=== PATIENT | female | born 1970 | race Hispanic/Latino ===

== ENCOUNTER 2019-11-15 20:40 | Inpatient (IN) | payer OTHER ==
[2019-11-15 21:27] LABS: Absolute Lymphocytes (CBC) 1.7 K/uL (0.7-4.9); Basophils % 0.6 % (0-1.3); Hematocrit 40.7 % (36.0-45.0); MPV 8.6 fL (7.6-11.3); RBC Red Blood Cell Count 4.72 M/uL (3.86-4.86)
--- NOTE | 2019-11-15 21:40 | ER ---
Nurse's Notes [facility] Name: Elisa Wheatley Age: 49 yrs Sex: Female : 1970 Arrival Date: 11/15/2019 Time: 20:42 Bed 19 Private MD: Diagnosis: Encounter for screening for lower gastrointestinal disorder;Gastrointestinal hemorrhage, unspecified Presentation: 11/14 20:53 Chief complaint: Patient states: Reports she had a colonoscopy on the [address] lauren Masters and started bleeding today. Reports the blood is hillary and has had 6 bloody stools within the past two hours. Coronavirus screen: Proceed with normal triage. Ebola Screen: No symptoms or risks identified at this time. Initial Sepsis Screen: Does the patient meet any 2 criteria? No. Patient's initial sepsis screen is negative. Does the patient have a suspected source of infection? No. Patient's initial sepsis screen is negative. Risk Assessment: Do you want to hurt yourself or someone else? Patient reports no desire to harm self or others. Onset of symptoms. 20:53 Method Of Arrival: Ambulatory rv 20:53 Acuity: NEELAM 3 rv Triage Assessment: 21:08 General: Appears in no apparent distress. Behavior is appropriate for age. Pain: Denies ea pain. Neuro: Level of Consciousness is awake, alert, obeys commands, Oriented to person, place, time, situation. Cardiovascular: Patient's skin is warm and dry. Respiratory: Airway is patent Respiratory effort is even, unlabored, Respiratory pattern is regular, symmetrical. GI: Reports bloody stool. Derm: Skin is pink, warm \T\ dry. Historical: - Allergies: 20:56 No Known Allergies; rv - Home Meds: 20:56 metoprolol tartrate 100 mg Oral tab [Active]; levothyroxine oral [Active]; rv - PMHx: 20:56 Hypertension; Hypothyroidism; rv - PSHx: 20:56 None; rv - Immunization history:: Adult Immunizations up to date. - Social history:: Smoking status: Patient denies any tobacco usage or history of. Screenin:55 Abuse screen: Denies threats or abuse. Nutritional screening: No deficits noted. rv Tuberculosis screening: No symptoms or risk factors identified. Fall Risk None identified. Assessment: 21:12 Reassessment: see triage assessment. ea 21:59 Reassessment: Patient and/or family updated on plan of care and expected duration. Pain ea level reassessed. Patient is alert, oriented x 3, equal unlabored respirations, skin warm/dry/pink. 22:19 Reassessment: Patient and/or family updated on plan of care and expected duration. Pain ea level reassessed. Patient is alert, oriented x 3, equal unlabored respirations, skin warm/dry/pink. 23:04 Reassessment: Report called to Ariella BENJAMIN. ea 23:22 Reassessment: Patient and/or family updated on plan of care and expected duration. Pain ea level reassessed. Patient is alert, oriented x 3, equal unlabored respirations, skin warm/dry/pink. Pt admitted to second floor, pt left ED via wheelchair per tech. Pt tolerating well. Vital Signs: 20:53 BP 175 / 95; Pulse 106; Resp 18; Temp 98; Pulse Ox 98% ; Weight 97.98 kg; Height 5 ft. rv 3 in. (160.02 cm); Pain 0/10; 22:21 BP 144 / 79; Pulse 94; Resp 18; Pulse Ox 97% on R/A; ea 23:15 BP 131 / 80; Pulse 97; Resp 18; Pulse Ox 97% on R/A; ea 20:53 Body Mass Index 38.26 (97.98 kg, 160.02 cm) rv ED Course: 20:42 Patient arrived in ED. ds1 20:55 Triage completed. rv 21:07 Guerda Gaona, SOURAV is Primary Nurse. ea 21:09 Sergio Cassidy MD is Attending Physician. tw4 21:09 Patient has correct armband on for positive identification. Placed in gown. Bed in low ea position. Call light in reach. Side rails up X 1. 21:10 Arm band placed on right wrist. Patient placed in an exam room, on a stretcher, on ea pulse oximetry. 21:10 Inserted saline lock: 18 gauge in right antecubital area, using aseptic technique. rv Blood collected. 21:38 Hugo Prieto MD is Hospitalizing Provider. tw4 22:19 No provider procedures requiring assistance completed. Patient admitted, IV remains in ea place. Administered Medications: 21:42 Drug: Flagyl 500 mg Volume: 100 ml; Route: IVPB; Rate: 200 ml/hr; Infused Over: 30 ea mins; Site: right antecubital; 22:57 Follow up: Response: No adverse reaction; IV Status: Completed infusion ea 21:43 Drug: Cipro 500 mg Route: PO; ea 22:10 Follow up: Response: No adverse reaction ea Outcome: 21:39 Decision to Hospitalize by Provider. tw4 22:20 Instructed on the need for admit, Demonstrated understanding of instructions. ea 23:04 Admitted to Med/surg accompanied by tech, room 205, Report called to Ariella BENJAMIN ea 23:04 Condition: stable 23:23 Patient left the ED. ea Signatures: Tammie Thao ds1 Guerda Gaona RN RN ea Sergio Cassidy MD MD tw4 Woodrow Fletcher RN RN rv Corrections: (The following items were deleted from the chart) :57 20:53 Chief complaint: Patient states: Reports she had a colonoscopy on the 05 of November rv and started bleeding today. Reports the blood is hillary and has had 6 bloody stools within the past two hours rv
--- NOTE | 2019-11-15 21:41 | EDPHYS ---
Physician Documentation [facility] Name: Elisa Wheatley Age: 49 yrs Sex: Female : 1970 Arrival Date: 11/15/2019 Time: 20:42 Bed 19 Private MD: ED Physician Sergio Cassidy HPI: 11/14 21:35 This 49 yrs old Female presents to ER via Ambulatory with complaints of Rectal tw4 Bleeding. 21:35 The patient presents to the emergency department with rectal bleeding, a moderate tw4 amount, 7 times since symptom onset. Onset: The symptoms/episode began/occurred today. Abdominal pain: none is appreciated. Modifying factors: The symptoms are alleviated by nothing, the symptoms are aggravated by food. Associated signs and symptoms: The patient has no apparent associated signs or symptoms. Severity of symptoms: At their worst the symptoms were moderate in the emergency department the symptoms are unchanged. The patient has experienced a previous episode. The patient has been recently seen by a physician: Dr. Mayte charles marketing and communications officer, 1 week(s) ago, pt had a colonoscopy which revealed polyps. Historical: - Allergies: 20:56 No Known Allergies; rv - Home Meds: 20:56 metoprolol tartrate 100 mg Oral tab [Active]; levothyroxine oral [Active]; rv - PMHx: 20:56 Hypertension; Hypothyroidism; rv - PSHx: 20:56 None; rv - Immunization history:: Adult Immunizations up to date. - Social history:: Smoking status: Patient denies any tobacco usage or history of. ROS: 21:35 Constitutional: Negative for fever, chills, and weight loss, Eyes: Negative for injury, tw4 pain, redness, and discharge, Cardiovascular: Negative for chest pain, palpitations, and edema, Respiratory: Negative for shortness of breath, cough, wheezing, and pleuritic chest pain, MS/Extremity: Negative for injury and deformity, Skin: Negative for injury, rash, and discoloration. 21:35 Abdomen/GI: Positive for rectal bleeding, Negative for abdominal pain, nausea and vomiting, nausea, vomiting, and diarrhea, nausea, vomiting, diarrhea, constipation, abdominal cramps, abdominal distension, anorexia, dysphagia. Exam: 21:35 Constitutional: This is a well developed, well nourished patient who is awake, alert, tw4 and in no acute distress. Head/Face: Normocephalic, atraumatic. Chest/axilla: Normal chest wall appearance and motion. Nontender with no deformity. No lesions are appreciated. Cardiovascular: Regular rate and rhythm with a normal S1 and S2. No gallops, murmurs, or rubs. Normal PMI, no JVD. No pulse deficits. Respiratory: Lungs have equal breath sounds bilaterally, clear to auscultation and percussion. No rales, rhonchi or wheezes noted. No increased work of breathing, no retractions or nasal flaring. Abdomen/GI: Soft, non-tender, with normal bowel sounds. No distension or tympany. No guarding or rebound. No evidence of tenderness throughout. Skin: Warm, dry with normal turgor. Normal color with no rashes, no lesions, and no evidence of cellulitis. MS/ Extremity: Pulses equal, no cyanosis. Neurovascular intact. Full, normal range of motion. Neuro: Awake and alert, GCS 15, oriented to person, place, time, and situation. Cranial nerves II-XII grossly intact. Motor strength 5/5 in all extremities. Sensory grossly intact. Cerebellar exam normal. Normal gait. 21:35 Abdomen/GI: Rectal exam: Stool: grossly bloody. Vital Signs: 20:53 BP 175 / 95; Pulse 106; Resp 18; Temp 98; Pulse Ox 98% ; Weight 97.98 kg; Height 5 ft. rv 3 in. (160.02 cm); Pain 0/10; 22:21 BP 144 / 79; Pulse 94; Resp 18; Pulse Ox 97% on R/A; ea 23:15 BP 131 / 80; Pulse 97; Resp 18; Pulse Ox 97% on R/A; ea 20:53 Body Mass Index 38.26 (97.98 kg, 160.02 cm) rv MDM: 21:11 Patient medically screened. tw4 21:39 Differential diagnosis: gastritis, diverticulitis. Data reviewed: vital signs, nurses tw4 notes. Counseling: I had a detailed discussion with the patient and/or guardian regarding: the historical points, exam findings, and any diagnostic results supporting the discharge/admit diagnosis. Special discussion: I discussed with the patient/guardian in detail that at this point there is no indication for admission to the hospital. It is understood, however, that if the symptoms persist or worsen the patient needs to return immediately for re-evaluation. 11/14 21:12 Order name: Basic Metabolic Panel; Complete Time: 21:48 [facility] 11/14 21:48 Interpretation: Normal except: CL 110; GFR 79; GLUC 135. [facility] 11/14 21:12 Order name: CBC with Diff; Complete Time: 21:48 [facility] 11/14 21:48 Interpretation: Normal except: PRISCILA% 74.7. [facility] 11/14 21:12 Order name: LFT's; Complete Time: 21:48 [facility] 11/14 21:48 Interpretation: Normal except: ALK 131; BILIT 1.1; GLOB 3.7; A/G 1.0. [facility] 11/14 21:12 Order name: Magnesium; Complete Time: 21:48 [facility] 11/14 21:49 Interpretation: Within normal limits: MG 2.1. [facility] 11/14 21:12 Order name: PT-INR; Complete Time: 21:48 [facility] 11/14 21:49 Interpretation: Within normal limits: PT 11.8. [facility] 11/14 21:20 Order name: Type And Screen ea 11/14 22:12 Order name: ABO/RH no charge EDMN 11/14 22:21 Order name: Basic Metabolic Panel EDMN 11/14 22:21 Order name: Basic Metabolic Panel EDMN 11/14 22:21 Order name: CBC with Automated Diff EDMN 11/14 22:21 Order name: CBC with Automated Diff EDMN 11/14 22:21 Order name: Hematocrit EDMN 11/14 22:22 Order name: Hematocrit EDMN 11/14 22:22 Order name: Hematocrit EDMN 11/14 22:21 Order name: CONS Pharmacy Consult EDMN 11/14 22:21 Order name: NPO EDMN 11/14 22:21 Order name: EKG Electrocardiogram EDMS 11/14 22:21 Order name: EKG Electrocardiogram EDMS 11/14 22:21 Order name: EKG Electrocardiogram EDMS 11/14 22:21 Order name: EKG Electrocardiogram EDMS 11/14 22:21 Order name: EKG Electrocardiogram EDMS 11/14 22:21 Order name: EKG Electrocardiogram EDMS 11/14 22:21 Order name: EKG Electrocardiogram EDMS 11/14 22:22 Order name: Hemoglobin EDMS 11/14 22:22 Order name: Hemoglobin EDMN 11/14 22:22 Order name: Hemoglobin EDMN 11/14 22:22 Order name: Protime (+INR) EDMN 11/14 22:22 Order name: Protime (+INR) EDMN 11/14 21:12 Order name: Cardiac monitoring; Complete Time: 21:58 tw4 11/14 21:12 Order name: IV Saline Lock; Complete Time: 21:13 tw4 11/14 21:12 Order name: Labs collected and sent; Complete Time: 21:13 tw4 11/14 21:12 Order name: O2 Per Protocol; Complete Time: 21:13 tw4 11/14 21:12 Order name: O2 Sat Monitoring; Complete Time: 21:13 tw4 11/14 22:21 Order name: EKG Electrocardiogram EDMN 11/14 22:21 Order name: EKG Electrocardiogram EDMN 11/14 22:21 Order name: EKG Electrocardiogram EDMN 11/14 22:21 Order name: EKG Electrocardiogram EDMN Administered Medications: 21:42 Drug: Flagyl 500 mg Volume: 100 ml; Route: IVPB; Rate: 200 ml/hr; Infused Over: 30 ea mins; Site: right antecubital; 22:57 Follow up: Response: No adverse reaction; IV Status: Completed infusion ea 21:43 Drug: Cipro 500 mg Route: PO; ea 22:10 Follow up: Response: No adverse reaction ea Disposition: 11/15/19 21:39 Hospitalization ordered by Hugo Prieto for Inpatient Admission. Preliminary diagnosis are Encounter for screening for lower gastrointestinal disorder, Gastrointestinal hemorrhage, unspecified. - Bed requested for Telemetry/MedSurg (Inpatient). - Status is Inpatient Admission. ea - Condition is Stable. - Problem is new. - Symptoms are unchanged. Signatures: Dispatcher [employer] Gina Woodward RN RN cg Guerda Gaona RN RN ea Wadley, Terrence, MD MD tw4 Woodrow Fletcher RN RN rv Corrections: (The following items were deleted from the chart) 22:33 21:39 Hospitalization Ordered by Hugo Prieto MD for Inpatient Admission. Preliminary cg diagnosis is Encounter for screening for lower gastrointestinal disorder; Gastrointestinal hemorrhage, unspecified. Bed requested for Telemetry/MedSurg (Inpatient). Status is Inpatient Admission. Condition is Stable. Problem is new. Symptoms are unchanged. tw4 23:23 22:33 11/15/2019 21:39 Hospitalization Ordered by Hugo Prieto MD for Inpatient ea Admission. Preliminary diagnosis is Encounter for screening for lower gastrointestinal disorder; Gastrointestinal hemorrhage, unspecified. Bed requested for Telemetry/MedSurg (Inpatient). Status is Inpatient Admission. Condition is Stable. Problem is new. Symptoms are unchanged.
[2019-11-15] MEDS ORDERED: METRONIDAZOLE 500mg IVPB 500 MG/100 ML BAG IV ONE (21:43)
[2019-11-15] MEDS ORDERED: CIPROFLOXACIN HCL 500 MG TAB ONE (21:44)
[2019-11-15 21:45] LABS: Albumin 3.8 g/dL (3.4-5.0); Bilirubin Direct 0.2 mg/dL (0-0.2); Bilirubin Total 1.1 mg/dL (0.2-1.0); Magnesium 2.1 mg/dL (1.8-2.4); Potassium 3.5 mmol/L (3.5-5.1); Protein, Total 7.5 g/dL (6.4-8.2)
[2019-11-15] MEDS ORDERED: ACETAMINOPHEN 500 MG TAB PO PRN (22:16)
[2019-11-15] MEDS ORDERED: ONDANSETRON 4 MG/2 ML VIAL IV PRN (22:16)
[2019-11-15] MEDS ORDERED: MORPHINE 2 MG/ML SYR IV PRN (22:16)
--- OUTSIDE RECORDS SUMMARY | 2019-11-15 22:59 | XMS REPORT ---
:1970 Author Organization [facility] t Address [address] [place] [address] Care Team Providers Name Role Phone Markie Coates Attending Clinician Donaldo SANTIAGO Attending Clinician Donaldo SANTIAGO Admitting Clinician Payers Payer Name Policy Type Policy Number Effective Date Expiration Date S ource Problems Condition Condition Condition Status Onset Resolution Last Treating Co mments Source Name Details Category Date Date Treatment Clinician Date Obesity Obesity Problem Active [facility] (BMI (BMI [facility] - 30-39.9) 30-39.9) [facility] Constipati Constipati Problem Active [facility] on, on, [facility] - unspecifie unspecifie Me moria d d l constipati constipati Ou tpati on type on type ent Clinics Encounter Encounter Problem Active [facility] for for [facility] - general general Memoria adult adult l medical medical Outpati examinatio examinatio en t n with n with Clinics abnormal abnormal findings findings Essential Essential Problem Active [facility] hypertensi hypertensi Kacie kes - on on Memoria l [facility] ent Clinics Hyperchole Hyperchole Problem Active [facility] sterolemia sterolemia [facility] Hyperglyce Hyperglyce Problem Active [facility] aaron aaron [facility] - Memoria l [facility]ics Rectal Rectal Problem Active [facility] bleeding bleeding [facility] Clinics Hypothyroi Hypothyroi Problem Active [facility] dism, dism, [facility] - unspecifie unspecifie Me moria d type d type l [facility] ent Clinics Diverticul Diverticul Problem Active [facility] osis osis [facility] l [facility] ent Clinics Allergies, Adverse Reactions, Alerts Allergy Allergy Status Severity Reaction(s) Onset Inactive Treating Comm ents Source Name Type Date Date Clinician No Known DA Active [facility] Allergie 8-15 [facility] s 00:00: d 00 [facility] Medications Ordered Filled Start Stop Current Ordering Indication Dosage Frequency Signature Comments Components Source Medication Medication Date Date Medication? Clinician (SIG) Name Name Levothyroxi Levothyroxi Yes Yuliya [address] [facility] ne Sodium ne Sodium 1-17 Shanks in the Kacie kes - 00:00: morning on Memoria 00 an empty l stomach [facility] Lipitor Lipitor Yes Yuliya [address] 1-17 Shanks [facility] - 00:00: Memoria 00 l [facility] ent Clinics Metoprolol Metoprolol Yes Yuliya [address] [facility] Tartrate Tartrate Shanks with food L es - [facility] ent [facility] Metoprolol Metoprolol Yes Yuliya as [facility] Succinate Succinate Shanks directed [facility] - [facility] ent Clinics Immunizations Ordered Filled Immunization Date Status Comments Sourc e Immunization Name Name Flucelvax - single Flucelvax - single 2019-06-[address] [facility] - dose syringe dose syringe 00:00:00 [facility] Procedures This patient has no known procedures. Encounters Start End Encounter Admission Attending Care Care Encounter Source Date/Time Date/Time Type Type Clinicians Facility Department ID 2019-08-22 2019-08-24 Emergency Mitzi Conway [id number] 10:38:04 19:06:00 Winnie Fulton [id number] [facility] [id number] 2019-08-06 2019-08-06 Outpatient Marie Salazart [id number] [facility] 09:56:00 09:56:00 t [facility] ent [facility] 2019-07-17 2019-07-17 Outpatient Brazenrique [place] [id number] [facility] 09:00:00 09:00:00 t [facility] 2019-06-23 2019-06-23 Outpatient Efeenrique [place] [id number] [facility] 10:45:00 10:45:00 t Urgent [facility] 2019-06-16 2019-06-16 Outpatient Marie Salazart [id number] 10:00:00 10:00:00 t [facility] Results Test Description Test Time Test Comments Results Result Comments Source SURG 2019-02-19 16:35:00 --------RUN DATE: 02/19/19 [facility] - LAB *LIVE* PAGE 1 RUN TIME: 1635 Specimen Inquiry RUN USER: INTERFACE --------PATIENT: PRISCILLA ZAVALA #: [id number] LOC: ADRY U #: [id number] AGE/SX: 48/F ROOM: RE02/17/19[facility] DR: Ivelisse Ahsley : 74 BED: DIS: STATUS: [facility] TLOC: -------- SPEC #: [id number] RECD: 02/17/19 STATUS: GAVIOTAThor REPreston #: [id number] BRIT: 02/17/19-[address]: Ivelisse Ashley MD ENTERED: 02/17/19 SP TYPE: SURG OTHR DR: No Primary or Family PhysicianORDERED: SURG PATH LVL 6 COPIES TO: No Primary or Family Physician Ivelisse Ashley MD [address] [place] [address] HISTOLOGY: TISSUE ID BLK PCS RENA LEV PROCEDURE DISPOSITION ____ ___ ___ ___ UTERUS, NOS A 2 PROCEDURES: SURG PATH LVL 6 (02/17/19) TISSUES: A. UTERUS, NOS - UTERUS LEFT TUBE ATTACHED CLINICAL HISTORY EXCESSIVE/FREQUENT MENSES -N92.1; UTERINE FIBROID -D25.9 CPT CODES CPT CODE(S): 42033 , , , , , , FINAL DIAGNOSIS Uterus and left fallopian tube, hysterectomy and left salpingectomy: NABOTHIAN CYSTS LEIOMYOMAS BILATERAL FALLOPIAN TUBE WITH PARATUBAL CYSTS GROSS DESCRIPTION Uterus, cervix and left fallopian tube. Received in formalin is a 122.4 gram hysterectomy and left salpingectomy specimen including a uterus with attached cervix (9.5 x 6.0 x 4.5 cm, 115.6 grams) and attached left fallopian tube with fimbriated end (6.5 x 1.5 x 1.0 cm). The serosal surface is aldrich-brown, generally smooth with a clamp petrona along the CONTINUED ON NEXT PAGE --------RUN DATE: 02/19/19 [facility] - LAB *LIVE* PAGE 2 RUN TIME: 1635 Specimen Inquiry RUN USER: INTERFACE --------SPEC #: [facility]:[id number] PATIENT: PRISCILLA ZAVALA #[id number] (Continued) GROSS DESCRIPTION (Continued) fundus. The cervix measures 4.0 x 3.5 x 3.5 (depth), covered by smooth glistening white mucosa with a focal brown, slightly granular area surrounding a linear os, 1.1 cm. The cervix contains several cysts, the largest measures 0.9 cm, filled with translucent colloid-like material. The endometrial cavity measures 2.5 cm from cornu to cornu x 3.5 cm in length with a slightly hemorrhagic endometrium, 0.3 cm. The myometrium is maximally 2.5 cm in thickness, and contains focal areas with slight coarse trabeculations. There are three (3) intramural nodules. ranging from 0.5 to 2.0 cm in greatest dimensions. The cut surface of the nodules is aldrich, firm and solid with the whorled appearance and without hemorrhage or necrosis. The left fallopian tube is slightly tortuous, has a patent lumen and attached paratubal cysts, 0.2 to 1.0 cm in greatest dimension, filled with translucent non-viscous fluid. Transit Bus Driver sections submitted. /nr Section code: A1 Anterior cervix A2 Posterior cervix A3-A4 Anterior endometrium/myometriu m A5-A6 Posterior endometrium/myometriu m A7-A8 Intramural nodules A9 Serosa (posterior cul-de-sac) A10-A11 Left fallopian tube and paratubal cysts Grossing performed at [facility], [address] [place] [address], [address], [place] [address]. Livestock Counter: Angus Sargent M.D. MICROSCOPIC DESCRIPTION Uterus, cervix and left fallopian tube. Sections demonstrate squamous ectocervix and glandular endocervix. Nabothian cysts are identified. Sections of the endometrium demonstratesecretory phase endometrium. The myometrium demonstrate spindle cell nodules with no evidence of increased mitotic activity or malignant features. The serosal surface is unremarkable. Sections of the fallopian tube demonstrate complete cross-sections of unremarkable fallopian tube and fimbriated end. Paratubal cysts are identified. Signed SIGNATURE ON FILE Ever Rodas 02/19/19 3311 -------- END OF REPORT URINALYSIS DIPSTICK 2019-02-13 17:22:00 Test Item Value Reference Range Interpretation Comme nts UA GLUCOSE DIPSTICK (test code = DGLUU) NEGATIVE mg/dL NEG UA BILIRUBIN DIPSTICK (test code = BILU) NEGATIVE mg/dL NEG UA KETONE DIPSTICK (test code = KETU) NEGATIVE mg/dL NEG UA SPECIFIC GRAVITY (test code = SGU) 1.015 SG 1.005-1.030 UA BLOOD DIPSTICK (test code = RAYMOND) NEGATIVE mg/DL NEG UA PH DIPSTICK (test code = TAWNY) 6.0 pH UNITS 5.0-7.0 UA PROTEIN DIPSTICK (test code = PROU) NEGATIVE mg/dL NEG UA UROBILINIOGEN DIPSTICK (test code = URO) 0.2 mg/dL <2.0 UA NITRITE DIPSTICK (test code = CAITY) NEGATIVE SCREEN NEG UA LEUKOCYTE ESTERASE DIPSTICK (test code = LEUU) NEGATIVE Leuk/mcL NEGATIVE Urine Specimen Type: Clean CatchUR HCG [id number] 09:30:00 Test Item Value Reference Range Interpretation Comments UR HCG QUAL (test code = HCGQLU) NEGATIVE NEGATIVE CBC W/AUTO [id number] 09:26:00 Test Item Value Reference Range Interpretation Comments WHITE BLOOD CELL (test code = 6.9 K/mm3 3.5-11.0 N WBC) RED BLOOD CELL (test code = RBC) 4.48 M/mm3 4.70-6.10 L HEMOGLOBIN (test code = HGB) 12.0 G/DL 10.4-14.9 N HEMATOCRIT (test code = HCT) 36.5 % 31.5-44.1 N MEAN CELL VOLUME (test code = 81.5 Fl 84.5-98.6 L MCV) MEAN CELL HGB (test code = MCH) 26.8 pg 27.0-34.2 L MEAN CELL HGB CONCETRATION (test 32.9 G/DL 31.5-34.0 N code = MCHC) RED CELL DISTRIBUTION WIDTH (test 18.8 SD 11.5-14.5 H code = RDW) PLATELET COUNT (test code = PLT) 184.0 K/mm3 150-450 N MEAN PLATELET VOLUME (test code = 10.00 fL 7.0-10.5 N MPV) NEUTROPHIL % (test code = NT%) 70.3 % 40-76 N LYMPHOCYTE % (test code = LY%) 20.7 % 20.5-51.1 N MONOCYTE % (test code = MO%) 5.5 % 1.7-9.3 N EOSINOPHIL % (test code = EO%) 3.4 % 0.0-6.0 N BASOPHIL % (test code = BA%) 0.1 % 0.0-2.0 N NEUTROPHIL # (test code = NT#) 4.82 K/mm3 1.8-7.6 N LYMPHOCYTE # (test code = LY#) 1.4 K/mm3 0.6-3.2 N MONOCYTE # (test code = MO#) 0.4 K/mm3 0.3-1.1 N EOSINOPHIL # (test code = EO#) 0.2 K/mm3 0.0-0.4 N BASOPHIL # (test code = BA#) 0.0 K/mm3 0.0-0.1 N MANUAL DIFF REQUIRED (test code = NO DIFF/SCN CRITERIA MDIFF)
[2019-11-15] MEDS ORDERED: NA CHLORIDE 0.9% 250 ML IV SCH (23:00)
[2019-11-15] MEDS: NA CHLORIDE 0.9% 1,000 ML IV SCH (23:00)
--- OUTSIDE RECORDS SUMMARY | 2019-11-15 23:00 | XMS REPORT ---
:1970 Author Organization [employer] Care Team Providers Name Role Phone Yuliya Shanks Provider Role Unavailable Allergies No Known Allergies Problems Problem Type Condition Code Onset Dates Condition Statu s Problem Obesity (BMI 30-39.9) E66.9 Active Problem Encounter for general adult medical Z00.01 Active examination with abnormal findings Problem Essential hypertension I10 Activ e Problem Constipation, unspecified K59.00 Ac tive constipation type Medications No Known Medications Results No Known Results Summary Purpose [employer] Submission
--- OUTSIDE RECORDS SUMMARY | 2019-11-15 23:00 | XMS REPORT ---
:1970 Author Organization [employer]Works Care Team Providers Name Role Phone Yuliya Shanks Provider Role Unavailable Allergies No Known Allergies Problems Problem Type Condition Code Onset Dates Condition Statu s Problem Essential hypertension I10 Activ e Problem Obesity (BMI 30-39.9) E66.9 Active Problem Hyperglycemia R73.9 Active Problem Hypothyroidism, unspecified type E03.9 Active Problem Diverticulosis K57.90 Active Problem Encounter for general adult medical Z00.01 Active examination with abnormal findings Problem Constipation, unspecified K59.00 Ac tive constipation type Problem Rectal bleeding K62.5 Active Problem Hypercholesterolemia E78.00 Active Medications No Known Medications Results No Known Results Summary Purpose eClinicalWorks Submission
--- OUTSIDE RECORDS SUMMARY | 2019-11-15 23:00 | XMS REPORT ---
:1970 Author Organization [employer] Care Team Providers Name Role Phone Yuliya Shanks Provider Role Unavailable Allergies, Adverse Reactions, Alerts Substance Reaction Event Type N.K.D.A. Info Not Available Non Drug Allergy Problems Problem Type Condition Code Onset Dates Condition Statu s Assessment Obesity (BMI 30-39.9) E66.9 Active Assessment Constipation, unspecified K59.00 Ac tive constipation type Problem Obesity (BMI 30-39.9) E66.9 Active Problem Encounter for general adult medical Z00.01 Active examination with abnormal findings Problem Essential hypertension I10 Activ e Assessment Encounter for general adult medical Z00.01 Active examination with abnormal findings Assessment Essential hypertension I10 Activ e Problem Constipation, unspecified K59.00 Ac tive constipation type Medications Medication Code Code Instructions Start End Status Dosage System Date Date Metoprolol [facility] 55204353077 100 MG Orally Active 1 t ablet Tartrate once a day with food Metoprolol ND 93580021015 100 MG Orally Jun 16 Active as directed Succinate Once a day 2018 Results No Known Results Immunizations Vaccine Administration Date Flucelvax - single dose syringe Jun 16, 2019 Summary Purpose eClinicalWorks Submission
--- OUTSIDE RECORDS SUMMARY | 2019-11-15 23:00 | XMS REPORT ---
:1970 Author Organization [employer]Works Care Team Providers Name Role Phone Yuliya Shanks Provider Role Unavailable Allergies, Adverse Reactions, Alerts Substance Reaction Event Type N.K.D.A. Info Not Available Non Drug Allergy Problems Problem Type Condition Code Onset Dates Condition Statu s Assessment Essential hypertension I10 Activ e Problem Constipation, unspecified K59.00 Ac tive constipation type Problem Hypercholesterolemia E78.00 Active Problem Hyperglycemia R73.9 Active Problem Rectal bleeding K62.5 Active Problem Obesity (BMI 30-39.9) E66.9 Active Problem Encounter for general adult medical Z00.01 Active examination with abnormal findings Problem Hypothyroidism, unspecified type E03.9 Active Problem Essential hypertension I10 Activ e Assessment Obesity (BMI 30-39.9) E66.9 Active Assessment Rectal bleeding K62.5 Active Assessment Hypercholesterolemia E78.00 Active Assessment Hypothyroidism, unspecified type E03.9 Active Assessment Hyperglycemia R73.9 Active Medications Medication Code Code Instructions Start End Status Dosage System Date Date Levothyroxine [facility] 83205735137 25 MCG Orally Jul 17, Active 1 tablet in Sodium Once a day on 2019 the mornin g empty stomach on an emp ty stomach Lipitor ND 68750990979 10 MG Orally Jul 17, Active 1 table t Once a day at 2019 night Metoprolol [facility] 96963622036 100 MG Orally Active as directed Succinate Once a day Metoprolol [facility] 43484431914 100 MG Orally Active 1 t ablet Tartrate once a day with food Results No Known Results Summary Purpose eClinicalWorks Submission
[2019-11-16 00:11] VITALS: BMI 38.2
[2019-11-16] MEDS ORDERED: PIPERACIL/TAZO 3.375 GM VIAL IV ONE (00:38)
[2019-11-16] MEDS ORDERED: NA CHLORIDE 0.9% 100 ML ONE ×2 (00:41→05:27)
[2019-11-16 00:55] LABS: Hematocrit 36.1 % (36.0-45.0)
[2019-11-16] MEDS: PIPER/TAZO/NS 3.375gm 3.375 GM/100 ML BAG IVPB SCH ×4 (05:42→17:11)
[2019-11-16 06:09] LABS: Absolute Lymphocytes (CBC) 1.5 K/uL (0.7-4.9); Basophils % 0.4 % (0-1.3); Hematocrit 33.7 % (36.0-45.0); Lymphocytes % 17.8 % (15.3-44.8); MPV 8.8 fL (7.6-11.3); RBC Red Blood Cell Count 3.98 M/uL (3.86-4.86)
[2019-11-16 06:11] LABS: Protime INR 1.08
[2019-11-16 06:24] LABS: BUN Blood Urea Nitrogen 10 mg/dL (7-18); Bicarbonate 22 mmol/L (21-32); Glucose Level 132 mg/dL (74-106); Potassium 3.6 mmol/L (3.5-5.1); Sodium Level 142 mmol/L (136-145)
--- NOTE | 2019-11-16 07:39 | P.HP ---
Certification for Inpatient Patient admitted to: Observation With expected LOS: <2 Midnights Patient will require the following post-hospital care: None Practitioner: I am a practitioner with admitting privileges, knowledge of patient current condition, hospital course, and medical plan of care. Services: Services provided to patient in accordance with Admission requirements found in Title 42 Section 412.3 of the Code of Federal Regulations Patient History Date of Service: 11/15/19 Reason for admission: Lower GI bleeding History of Present Illness: Patient is a 49-year-old female who has a history of hypertension and hypothyroidism. She is mainly [place]ian-speaking, and most of the information was obtained with translation through the language line along with registered nurse RN. She has been have an large amounts of blood and her stool whenever she has been going to the restroom. She has gone 6 times today and she says all of them had blood in her stool. She came into the emergency room for evaluation. In the emergency room, patient's initial hemoglobin was 13.8. Patient is hemodynamically stable at this time. Patient continues to have a large amount of stool blood in her stools in the hospital. Will continue monitoring her H&H closely. Will admit her in for observation at this time. Will get GI consultation. Patient continues to have large bloody bowel movements and she continues to drop her hemoglobin the she may need further intervention. At this time, she is not orthostatics but this could change if she continues to lose blood at this rate. If her hemoglobin continues to drop, then we will need to change her to an inpatient hospitalization. Will monitor it through the next 24 hrs. Allergies No Known Allergies Allergy (Verified 11/15/19 23:51) Home Medications: Atorvastatin Calcium 10 mg PO BEDTIME 11/15/19 Levothyroxine [Synthroid] 25 mcg PO [id number] 11/15/19 Metoprolol Succinate [Toprol Xl] 100 mg PO DAILY 11/15/19 Omeprazole 20 mg PO [id number] 11/15/19 - Past Medical/Surgical History Has patient received pneumonia vaccine in the past: No Diabetic: No -: HTN -: Hypothyroidism Past Surgical History: Patient denies surgical history - Family History Father Family History: Reviewed- Non-Contributory - Social History Smoking Status: Never smoker Alcohol use: No CD- Drugs: No Caffeine use: No Place of Residence: Home Review of Systems 10-point ROS is otherwise unremarkable Physical Examination - Vital Signs Temperature: 98.9 F Blood Pressure: 112/66 Pulse: 85 Respirations: 16 Pulse Ox (%): 96 - Physical Exam General: Alert, In no apparent distress, Oriented x3 HEENT: Atraumatic, PERRLA, Mucous membr. moist/pink, EOMI, Sclerae nonicteric Neck: Supple, 2+ carotid pulse no bruit, No LAD, Without JVD or thyroid abnormality Respiratory: Clear to auscultation bilaterally, Normal air movement Cardiovascular: Regular rate/rhythm, Normal S1 S2, No murmurs Gastrointestinal: Normal bowel sounds, Soft and benign, Non-distended, No tenderness Musculoskeletal: No clubbing, No swelling, No tenderness Integumentary: No rashes Neurological: Normal gait, Normal speech, Normal strength at 5/5 x4 extr, Normal tone, Sensation intact, Cranial nerves 3-12 intact, Normal affect Lymphatics: No axilla or inguinal lymphadenopathy - Studies Laboratory Data (last 24 hrs) 11/15/19 21:15: PT 11.8, INR 1.00 11/15/19 21:15: WBC 9.8, Hgb 13.8, Hct 40.7, Plt Count 209 11/15/19 21:15: Sodium 142, Potassium 3.5, BUN 11, Creatinine 0.78, Glucose 135 H, Magnesium 2.1, Total Bilirubin 1.1 H, AST 18, ALT 34, Alkaline Phosphatase 131 H Assessment & Plan - Problems (Diagnosis) (1) Lower GI bleeding Current Visit: Yes Status: Acute - Plan Plan: 1. Continue with IV hydration and PPI twice daily 2. Continue with IV antibiotics for possible diverticular bleed 3. Continue with pain control 4. NPO 5. GI consultation pending 6. Serial H&H, and we will monitor LFTs and lipase along with electrolytes. 7. Monitor orthostatics and hemodynamics closely 8. GI and DVT prophylaxis - Advance Directives Does patient have a Living Will: No Does patient have a Durable POA for Healthcare: No
--- NOTE | 2019-11-16 07:44 | P.PN ---
Subjective Date of Service: 11/16/19 Patient has had a substantial drop in the hemoglobin to 11.7 from 13.8. Patient continues to lose blood in her stool. Patient does state she has if getting a little lightheaded whenever she moves around. Will need to monitor her orthostatics very closely. Repeat H&H Q 6 hrs. Await GI consultation today as well. Review of Systems 10-point ROS is otherwise unremarkable Physical Examination - Vital Signs Temperature: 98.9 F Blood Pressure: 112/66 Pulse: 85 Respirations: 16 Pulse Ox (%): 96 - Physical Exam General: Alert, In no apparent distress, Oriented x3 Respiratory: Clear to auscultation bilaterally, Normal air movement Cardiovascular: Regular rate/rhythm, Normal S1 S2, No murmurs Gastrointestinal: Normal bowel sounds, Soft and benign, Non-distended, No tenderness Musculoskeletal: No clubbing, No swelling, No tenderness Neurological: Normal tone, Sensation intact, Cranial nerves 3-12 intact, Normal affect - Studies Laboratory Data (last 24 hrs) 11/15/19 21:15: PT 11.8, INR 1.00 11/15/19 21:15: WBC 9.8, Hgb 13.8, Hct 40.7, Plt Count 209 11/15/19 21:15: Sodium 142, Potassium 3.5, BUN 11, Creatinine 0.78, Glucose 135 H, Magnesium 2.1, Total Bilirubin 1.1 H, AST 18, ALT 34, Alkaline Phosphatase 131 H Medications List Reviewed: Yes Assessment & Plan - Problems (Diagnosis) (1) Lower GI bleeding Current Visit: Yes Status: Acute - Plan Plan: Continue with current plan of care as mentioned below: 1. Continue with IV hydration and PPI twice daily 2. Continue with IV antibiotics for possible diverticular bleed 3. Continue with pain control 4. Continue with NPO 5. GI consultation pending 6. Serial H&H-hemoglobin dropped down to 11.7 from 13.8. We will monitor H&H closely 7. Monitor orthostatics and hemodynamics closely 8. GI and DVT prophylaxis Discharge Plan: Home Plan to discharge in: 24 Hours - Advance Directives Does patient have a Living Will: No Does patient have a Durable POA for Healthcare: No - Code Status/Comfort Care Code Status Assessed: Yes Code Status: Full Code Critical Care: No Time Spent Managing PTS Care (In Minutes): 20
[2019-11-16] MEDS: PANTOPRAZOLE 40 MG INJ IVP SCH ×2 (08:54→21:04)
[2019-11-16 11:08] LABS: Absolute Lymphocytes (CBC) 2.3 K/uL (0.7-4.9); Basophils % 0.4 % (0-1.3); Hematocrit 33.8 % (36.0-45.0); Lymphocytes % 24.2 % (15.3-44.8); MPV 8.3 fL (7.6-11.3); RBC Red Blood Cell Count 3.97 M/uL (3.86-4.86)
[2019-11-16] MEDS: NA CHLORIDE 0.9% 1,000 ML IV SCH (13:47)
[2019-11-16] MEDS ORDERED: GOLYTELY 4000 ML PO SCH (16:00)
[2019-11-16 16:36] LABS: Hematocrit 28.8 % (36.0-45.0)
[2019-11-16] MEDS ORDERED: NA CHLORIDE 0.9% 500 ML IV ONE (22:01)
[2019-11-16 22:33] LABS: Absolute Lymphocytes (CBC) 2.1 K/uL (0.7-4.9); Basophils % 0.4 % (0-1.3); Hematocrit 23.5 % (36.0-45.0); Lymphocytes % 32.8 % (15.3-44.8); MPV 8.2 fL (7.6-11.3); RBC Red Blood Cell Count 2.71 M/uL (3.86-4.86)
[2019-11-16 22:48] LABS: ALT/SGPT 20 U/L (12-78); AST/SGOT 12 U/L (15-37); Albumin 2.5 g/dL (3.4-5.0); Alkaline Phosphatase 61 U/L (45-117); BUN Blood Urea Nitrogen 8 mg/dL (7-18); Bicarbonate 22 mmol/L (21-32); Bilirubin Total 1.1 mg/dL (0.2-1.0); Glucose Level 134 mg/dL (74-106); Potassium 3.2 mmol/L (3.5-5.1); Protein, Total 5.1 g/dL (6.4-8.2); Sodium Level 145 mmol/L (136-145)
[2019-11-17] MEDS: PIPER/TAZO/NS 3.375gm 3.375 GM/100 ML BAG IVPB SCH ×4 (01:11→16:24)
[2019-11-17] MEDS: NA CHLORIDE 0.9% 1,000 ML IV SCH ×4 (01:40→15:00)
[2019-11-17] MEDS ORDERED: FENTANYL CITR 100 MCG/2 ML IV PRN (07:38)
[2019-11-17] MEDS ORDERED: NA CHLORIDE 0.9% 250 ML IV ONE (07:42)
[2019-11-17] MEDS ORDERED: POTASSIUM CL 40 MEQ in NA CHLORIDE 0.9% 500 ML IV SCH (08:00)
[2019-11-17 08:21] LABS: Hematocrit 29.2 % (36.0-45.0)
[2019-11-17] MEDS: PANTOPRAZOLE INJ 80 MG in NA CHLORIDE 0.9% 250 ML IV SCH ×2 (10:18→21:54)
[2019-11-17] MEDS ORDERED: Ringers Lactate 1,000 ML IV ONE (13:53)
[2019-11-17 15:25] VITALS: O2SAT 100
[2019-11-17] MEDS ORDERED: LIDOCAINE 1% MPF 5 ML VIAL ONE (15:27)
[2019-11-17] MEDS ORDERED: propofoL 200 MG/20 ML VIAL IV ONE (15:27)
--- NOTE | 2019-11-17 16:04 | P.PN ---
Subjective Date of Service: 11/17/19 Chief Complaint: Lower GI bleeding Physical Examination - Vital Signs Temperature: 97.9 F Blood Pressure: 92/45 Pulse: 84 Respirations: 16 Pulse Ox (%): 99 - Studies Medications List Reviewed: Yes Assessment & Plan Physician Review Additional Text: Case discussed with GI who has perform colonoscopy. No acute bleeding noted. Ulcer noted to polyectomy site. GI has clipped area. Patient currently stable this time. If stable by tomorrow patient can be considered for discharge. 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 GI has started full liquid diet.
[2019-11-18] MEDS: PIPER/TAZO/NS 3.375gm 3.375 GM/100 ML BAG IVPB SCH ×3 (01:00→17:00)
[2019-11-18] MEDS: PANTOPRAZOLE INJ 80 MG in NA CHLORIDE 0.9% 250 ML IV SCH (04:00)
[2019-11-18] MEDS ORDERED: LEVOTHYROXINE SOD 0.025 MG TAB PO SCH (06:00)
[2019-11-18 06:39] LABS: Absolute Lymphocytes (CBC) 1.8 K/uL (0.7-4.9); Basophils % 0.5 % (0-1.3); Hematocrit 25.6 % (36.0-45.0); MPV 8.3 fL (7.6-11.3); RBC Red Blood Cell Count 3.01 M/uL (3.86-4.86)
[2019-11-18 07:15] LABS: BUN Blood Urea Nitrogen 3 mg/dL (7-18); Bicarbonate 24 mmol/L (21-32); Glucose Level 86 mg/dL (74-106); Magnesium 2.1 mg/dL (1.8-2.4); Phosphorus 2.2 mg/dL (2.5-4.9); Sodium Level 143 mmol/L (136-145)
[2019-11-18 07:20] LABS: Potassium 2.8 mmol/L (3.5-5.1)
[2019-11-18] MEDS ORDERED: POTASSIUM PHOS 30 MM in NA CHLORIDE 0.9% 500 ML IV ONE (07:38)
[2019-11-18] MEDS: PANTOPRAZOLE 40MG TABLET PO SCH ×2 (08:21→08:32)
--- NOTE | 2019-11-18 08:44 | P.DS ---
Discharge Date: 11/18/19 Disposition: ROUTINE DISCHARGE Discharge Condition: GOOD Reason for Admission: Lower GI bleeding Consultations: Gastroenterology - Problems (1) Lower GI bleeding Current Visit: Yes Status: Acute Brief History of Present Illness: Patient is a 49-year-old female who has a history of hypertension and hypothyroidism. She is mainly Polish-speaking, and most of the information was obtained with translation through the language line along with registered nurse RN. She has been have an large amounts of blood and her stool whenever she has been going to the restroom. She has gone 6 times today and she says all of them had blood in her stool. She came into the emergency room for evaluation. In the emergency room, patient's initial hemoglobin was 13.8. Patient is hemodynamically stable at this time. Patient continues to have a large amount of stool blood in her stools in the hospital. Will continue monitoring her H&H closely. Will admit her in for observation at this time. Will get GI consultation. Patient continues to have large bloody bowel movements and she continues to drop her hemoglobin the she may need further intervention. At this time, she is not orthostatics but this could change if she continues to lose blood at this rate. If her hemoglobin continues to drop, then we will need to change her to an inpatient hospitalization. Will monitor it through the next 24 hrs. Hospital Course: Patient done well during hospital stay. Patient did have some acute blood loss and was transfused 2 units of packed red blood cells. Hemoglobin has remained stable. Will go ahead and start patient on a diet today and if patient does well then anticipate discharge home this evening. Will repeat H&H this afternoon as well. If hemoglobin remains stable then will go ahead and discharge home with outpatient follow-up. Patient electrolytes have also been abnormal so we will room supplement these as well. Hopefully patient be able to discharge later today. Vital Signs/Physical Exam: Temp Pulse Resp BP Pulse Ox 97.5 F 92 H 18 122/57 L 97 11/18/19 04:00 11/18/19 04:00 11/18/19 04:00 11/18/19 04:00 11/18/19 04:00 General: Alert, In no apparent distress, Oriented x3 Laboratory Data at Discharge: WBC 6.2 K/uL (4.3-10.9) 11/18/19 05:56 Hgb 9.0 g/dL (12.0-15.0) L 11/18/19 05:56 Hct 25.6 % (36.0-45.0) L 11/18/19 05:56 Plt Count 155 K/uL (152-406) 11/18/19 05:56 PT 12.7 SECONDS (9.5-12.5) H 11/16/19 05:36 INR 1.08 11/16/19 05:36 Sodium 143 mmol/L (136-145) 11/18/19 05:56 Potassium 2.8 mmol/L (3.5-5.1) L* 11/18/19 05:56 BUN 3 mg/dL (7-18) L 11/18/19 05:56 Creatinine 0.52 mg/dL (0.55-1.3) L 11/18/19 05:56 Glucose 86 mg/dL (74-106) 11/18/19 05:56 Phosphorus 2.2 mg/dL (2.5-4.9) L 11/18/19 05:56 Magnesium 2.1 mg/dL (1.8-2.4) 11/18/19 05:56 Total Bilirubin 1.1 mg/dL (0.2-1.0) H 11/16/19 22:23 AST 12 U/L (15-37) L 11/16/19 22:23 ALT 20 U/L (12-78) 11/16/19 22:23 Alkaline Phosphatase 61 U/L (45-117) D 11/16/19 22:23 Home Medications: Atorvastatin Calcium 10 mg PO BEDTIME 11/15/19 Levothyroxine [Synthroid] 25 mcg PO [id number] 11/15/19 Metoprolol Succinate [Toprol Xl] 100 mg PO DAILY 11/15/19 Ciprofloxacin HCl [Cipro 250 MG Tablet*] 250 mg PO BID #10 tab 11/18/19 Pantoprazole [Protonix Tab*] 40 mg PO BID #60 tab 11/18/19 Sucralfate [Carafate -Tab] 1 gm PO ACHS #120 tab 11/18/19 metroNIDAZOLE [Flagyl] 500 mg PO Q8H #20 tablet 11/18/19 New Medications: Sucralfate [Carafate -Tab] 1 gm PO ACHS #120 tab Ciprofloxacin HCl [Cipro 250 MG Tablet*] 250 mg PO BID #10 tab metroNIDAZOLE [Flagyl] 500 mg PO Q8H #20 tablet Pantoprazole [Protonix Tab*] 40 mg PO BID #60 tab Patient Discharge Instructions: OK TO DC IV AND DC HOME if hemoglobin remains stable and electrolytes are corrected. FOLLOW-UP WITH PRIMARY CARE PROVIDER IN 1-2 WEEKS. FOLLOW-UP WITH Gastroenterology IN 1-2 WEEKS. RETURN TO THE ER IF symptoms worsen. CALL or TEXT DR. SNEED AT [phone] IF ANY QUESTIONS REGARDING HOSPITAL STAY. PLEASE CALL THE FLOOR AT [phone] IF ANY MEDICATION OR NURSING QUESTIONS. Diet: Regular Activity: Fall precautions Time spent managing pt's care (in minutes): 35
--- NOTE | 2019-11-18 08:48 | P.PN ---
Date of Service: 11/17/19 Subjective Patient was transfused 2 units packed red blood cells. Schedule for colonoscopy. Await colonoscopy results prior to arrangement for disposition. Review of Systems 10-point ROS is otherwise unremarkable Physical Examination - Vital Signs Reviewed - Physical Exam No new changes as mentioned below: General: Alert, In no apparent distress, Oriented x3 Respiratory: Clear to auscultation bilaterally, Normal air movement Cardiovascular: Regular rate/rhythm, Normal S1 S2, No murmurs Gastrointestinal: Normal bowel sounds, Soft and benign, Non-distended, No tenderness Musculoskeletal: No clubbing, No swelling, No tenderness Neurological: Normal tone, Sensation intact, Cranial nerves 3-12 intact, Normal affect Assessment & Plan - Problems (Diagnosis) (1) Lower GI bleeding Current Visit: Yes Status: Acute - Plan Plan: Continue with current plan of care as mentioned below: 1. Continue with IV hydration and PPI twice daily 2. Continue with IV antibiotics for possible diverticular bleed 3. Continue with pain control 4. Continue with NPO 5. GI consultation appreciated; EGD scheduled for today 6. Patient required 2 units of packed red blood cells as hemoglobin dropped 8.1. Repeat hemoglobin pending. Monitor closely for additional transfusion 7. Monitor orthostatics and hemodynamics closely 8. GI and DVT prophylaxis Discharge Plan: Home Plan to discharge in: 24 Hours - Advance Directives Does patient have a Living Will: No Does patient have a Durable POA for Healthcare: No - Code Status/Comfort Care Code Status Assessed: Yes Code Status: Full Code Critical Care: No Time Spent Managing PTS Care (In Minutes): 30
[2019-11-18 09:50] LABS: Blood Morphology Comment NOT SEEN (NOT SEEN); Platelet Estimate ADEQ
[2019-11-18 12:49] VITALS: BP 123/67; TEMP 98.2
[2019-11-18 13:10] LABS: Absolute Lymphocytes (CBC) 1.7 K/uL (0.7-4.9); Basophils % 0.4 % (0-1.3); Hematocrit 27.8 % (36.0-45.0); Lymphocytes % 22.8 % (15.3-44.8); MPV 8.1 fL (7.6-11.3); RBC Red Blood Cell Count 3.24 M/uL (3.86-4.86)
[2019-11-18 14:15] LABS: BUN Blood Urea Nitrogen 3 mg/dL (7-18); Bicarbonate 25 mmol/L (21-32); Glucose Level 143 mg/dL (74-106); Potassium 3.1 mmol/L (3.5-5.1); Sodium Level 142 mmol/L (136-145)
[2019-11-18 14:52] LABS: Blood Morphology Comment NOT SEEN (NOT SEEN); Platelet Estimate ADEQ; Urine White Blood Cell Casts OK
[2019-11-19] MEDS ORDERED: PANTOPRAZOLE 40MG TABLET PO SCH (06:30)
== END 2019-11-18 17:32 | disposition home or self-care (01) | DRG 378 ==
LOC: ER 20:40 → ERHOLD 22:29 → 2ND 23:08 → OBSVTOIN 11-16 11:11
PROVIDERS: ADMIT Hospitalist; ATTEND Hospitalist
PROC: 30233N1 Transfusion of Nonautologous Red Blood Cells into Peripheral Vein, Percutaneous Approach (ICD-10-PCS; principal; 2019-11-16)
PROC: 0DJD8ZZ Inspection of Lower Intestinal Tract, Via Natural or Artificial Opening Endoscopic (ICD-10-PCS; 2019-11-17)
DX: K92.1 Melena (principal); D62 Acute posthemorrhagic anemia; E03.9 Hypothyroidism, unspecified; I95.1 Orthostatic hypotension; I10 Essential (primary) hypertension; Z79.899 Other long term (current) drug therapy; Z79.890 Hormone replacement therapy; Z20.828 Contact with and (suspected) exposure to other viral communicable diseases
CPT/HCPCS: 36415; 80048; 80053; 80076; 82947; 83735; 84100; 85014; 85018; 85025; 85044; 85610; 86850; 86900; 86901; 96365; 99285; C9113; G0378; J2543; J2704; J7030; J7040; J7120; P9016; U0002